=== PATIENT | male | born 1945 | race Caucasian/White ===

== ENCOUNTER 2019-08-22 19:12 | Inpatient (IN) ==
[2019-08-22] MEDS ORDERED: PULMICORT INH ONE (19:29)
[2019-08-22] MEDS ORDERED: DUONEB (A & A) INH ONE (19:29)
[2019-08-22 19:42] LABS: BASO# 0.09 X1000 (0.0-0.2); BASO% 0.8 % (0.0-0.8); EOS# 0.25 X1000 (0.0-0.7); EOS% 2.3 % (0.0-10.0); HEMATOCRIT 44.6 % (42.0-52.0); HEMOGLOBIN 14.3 g/dL (14.0-18.0); IMM GRAN# 0.02 X1000 (0.0-0.04); IMM GRAN% 0.2 % (0.0-0.5); LYMPH# 4.94 X1000 (1.2-3.4); LYMPH% 45.7 % (20.5-51.1); MCH 29.5 PG (27-31); MCHC 32.1 g/dL (33-37); MCV 92.1 FL (81-99); MONO# 0.68 X1000 (0.11-0.59); MONO% 6.3 % (1.7-9.3); MPV 10.7 FL (7.4-10.4); NEUT# 4.82 X1000 (1.4-6.5); NEUT% 44.7 % (42.2-75.2); PLT 328 X1000 (130-400); RBC 4.84 XMIL (4.7-6.1); RDW 13.9 % (11.5-14.5)
[2019-08-22 19:50] LABS: ALLEN TEST YES; BE -4.8 mmoll (-3.0-3.0); BLOOD TYPE ARTERIAL; HCO3-(ACT) 21.2 mmoll (20.0-26.0); O2(CT) 21.1 mL/dL (15.0-23.0); O2HB 96.6 % (95.0-99.0); PCO2(98.6) 44 mmHg (35-45); PO2(98.6) 524 mmHg (60-100); SAMPLE BLOOD; SAO2 96.6 % (95.0-100.0); THB 14.5 g/dL (11.5-17.4)
[2019-08-22 19:51] LABS: MODALITY BI PAP
--- NOTE | 2019-08-22 19:51 | PROVIDER DOCUMENTATION ---
This chart was entered by Patrica Egan Scribe, acting as scribe for Bouchra Carrillo MD. HPI-Respiratory General - General Stated Complaint: RESP DISTRESS Time Seen by Provider: 08/22/19 19:13 Source: EMS Allergies/Adverse Reactions: Patient Allergies Allergy/AdvReac Type Severity Reaction Status Date / Time No Known Allergies Allergy Verified 08/23/19 01:22 Home Medications: Home Medication List Medication Instructions Recorded Confirmed Last Taken Type Amlodipine Besylate 10 mg PO DAILY 08/22/19 08/22/19 08/22/19 History Aspirin EC 81 mg PO DAILY 08/22/19 08/22/19 08/22/19 History Cyanocobalamin (Vitamin B-12) 2,000 mcg PO DAILY 08/22/19 08/22/19 08/22/19 History [Vitamin B-12] Lorazepam [Ativan] 1 mg PO QHS 08/22/19 08/22/19 08/21/19 History Mirtazapine 30 mg PO QHS 08/22/19 08/22/19 08/21/19 History Multivit,Tx with Iron,Minerals 1 tab PO DAILY 08/22/19 08/22/19 08/22/19 History [Complete Multivitamin] Pantoprazole Sodium [Protonix] 40 mg PO DAILY 08/22/19 08/22/19 08/22/19 History Trazodone [Desyrel] 100 mg PO QHS 08/22/19 08/22/19 08/21/19 History - History of Present Illness-Resp Nature of Presenting Problem: PT IS A 77 YOWM PRESENTING W/[employer] EMS W/RESP DISTRESS. EMS STS PT HAS ACCESSORY MUSCLE USE, AND AUDIBLE WHEEZING ENROUTE. ON CPAP W/ALBUTEROL. PT WAS AT HOME WHEN EMS CALLED. HPI LIMITED DUE TO PT CONDITION. Severity in ED: reports: severe Onset/Duration: reports: just prior to arrival Timing: reports: still present Exposure: reports: unknown cause Modifying Factors: improves with: nothing Review of Systems - Adult - REVIEW OF SYSTEMS - ADULT Constitutional: reports: no symptoms reported. denies: fever, fatique, night sweats Eyes: reports: no symptoms reported Ears, Nose, Mouth & Throat: reports: no symptoms reported Cardiovascular: reports: no symptoms reported Respiratory: reports: see HPI, shortness of breath, wheezing. denies: cough, excessive sputum production, hemoptysis Gastrointestinal: reports: no symptoms reported Genitourinary: reports: no symptoms reported Musculoskeletal: reports: no symptoms reported Integumentary: reports: no symptoms reported Neurological: reports: no symptoms reported Psychiatric: reports: no symptoms reported Endocrine: reports: no symptoms reported Hematologic/Lymphatic: reports: no symptoms reported Allergic/Immunologic: reports: no symptoms reported All Other Systems: Reviewed and Negative Past History - Adult - PAST MEDICAL HISTORY-ADULT Review of Records: reports: Old Records Reviewed, Nursing Assessment Review, Medications Reviewed, Social history reviewed & non-contributory. Major Childhood Illnesses: reports: denies history Cardiovascular: reports: denies history Respiratory: reports: denies history Gastrointestinal: reports: denies history Obstetrical/Gynecological: reports: denies history Genitourinary: reports: denies history Musculoskeletal: reports: denies history Neurological: reports: denies history Endocrine/Immune: reports: denies history Other Conditions: reports: denies history - IMMUNIZATION STATUS Childhood Immunizations: See Nurse Assessment Flu Vaccine: See Nurse Assessment - FAMILY HISTORY Family History: reviewed, not pertinent Physical Exam-General - PHYSICAL EXAM-ADULT Initial Vital Signs Reviewed: Yes - CONSTITUTIONAL General Appearance: severe distress, obese, slow to respond, obtunded. negative: anxious, combative - EYES Eyes: PERRL/EOMI - HEAD, EARS, NOSE, MOUTH & THROAT HENMT: normocephalic/atraumatic, moist mucous membranes - NECK Neck: non-tender, full range of motion, supple, normal inspection - RESPIRATORY Respiratory: chest non-tender, no pleuratic chest pain, respiratory distress, decreased breath sounds, accessory muscle use, wheezing (AUDIBLE WHEEZING). negative: lungs clear, normal breath sounds, no respiratory distress, no accessory muscle use, stridor - CARDIOVASCULAR Cardiovascular: normal peripheral pulses, tachycardia. negative: regular rate, rhythm, friction rub, irregularly irregular - GASTROINTESTINAL (ABDOMEN) Abdominal Exam: normal bowel sounds, non tender, soft - MUSCULOSKELETAL Back Exam: normal inspection Extremity: normal range of motion, non-tender, normal inspection, no pedal edema , no calf tenderness, normal capillary refill, pelvis stable. negative: slow capillary refill, swelling, tenderness - SKIN Integumentary: normal color, normal turgor, warm/dry - NEUROLOGIC Neurologic: no motor/sensory deficits, other - PSYCHIATRIC Psych/Mental Status: other (UNABLE TO TEST DUE TO PT CONDITION) Progress - PLAN OF CARE/RESULTS Progress/Plan/Lab Results: Vital Signs - 8 hr 08/22/19 22:17 08/22/19 22:32 08/22/19 22:47 Temperature Pulse Rate 79 89 77 Respiratory Rate 13 15 15 Blood Pressure 137/88 122/82 144/76 O2 Sat by Pulse Oximetry 100 100 99 08/22/19 23:02 08/22/19 23:10 08/22/19 23:17 Temperature 98.0 F Pulse Rate 78 77 Respiratory Rate 14 17 Blood Pressure 133/72 142/82 O2 Sat by Pulse Oximetry 100 98 99 08/22/19 23:32 08/22/19 23:47 08/23/19 00:02 Temperature 97.9 F Pulse Rate 72 70 78 Respiratory Rate 16 15 19 Blood Pressure 123/71 125/77 139/79 O2 Sat by Pulse Oximetry 98 98 97 08/23/19 00:17 08/23/19 00:32 08/23/19 00:47 Temperature Pulse Rate 71 68 71 Respiratory Rate 16 14 17 Blood Pressure 127/71 123/72 121/70 O2 Sat by Pulse Oximetry 98 97 97 08/23/19 01:02 Temperature 98.0 F Pulse Rate 72 Respiratory Rate 15 Blood Pressure 127/70 O2 Sat by Pulse Oximetry 98 08/23/19 00:21 Influenza Screen - Final Nasopharyngeal Laboratory Results - last 24 hr 08/22/19 08/22/19 08/22/19 19:24 19:24 19:24 WBC 10.80 RBC 4.84 Hgb 14.3 Hct 44.6 MCV 92.1 MCH 29.5 MCHC 32.1 L RDW Std Deviation 13.9 Plt Count 328 MPV 10.7 H Immature Gran % (Auto) 0.2 Neut % (Auto) 44.7 Lymph % (Auto) 45.7 Johnson % (Auto) 6.3 Eos % (Auto) 2.3 Baso % (Auto) 0.8 Immature Gran # (Auto) 0.02 Neut # (Auto) 4.82 Lymph # (Auto) 4.94 H Johnson # (Auto) 0.68 H Eos # (Auto) 0.25 Baso # (Auto) 0.09 PT INR PTT (Actin FS) Specimen Type Sample Site pH pCO2 pO2 HCO3 Base Excess Oxyhemoglobin ABG O2 Sat (Calculated) ABG O2 Saturation ABG Carboxyhemoglobin ABG Methemoglobin Ryan Test A-a O2 Difference Total Hemoglobin Lactate Liter Flow Blood Gas Modality Vent Mode FiO2 % Inspiratory BiPAP Expiratory BiPAP Sodium 139 Potassium 4.1 Chloride 102 Carbon Dioxide 22 L Anion Gap 15 BUN 12 Creatinine 1.2 BUN/Creatinine Ratio 10 Glucose 164 H POC Glucose Calculated Osmolality 281 Calcium 9.4 Total Bilirubin 0.31 AST 26 ALT 19 Alkaline Phosphatase 78 Troponin T High Sens Vdp-P-Gaxvdgbxznr Pept 82 Total Protein 7.7 Albumin 4.4 Globulin 3.3 Albumin/Globulin Ratio 1.3 08/22/19 08/22/19 08/22/19 19:24 19:24 19:37 WBC RBC Hgb Hct MCV MCH MCHC RDW Std Deviation Plt Count MPV Immature Gran % (Auto) Neut % (Auto) Lymph % (Auto) Johnson % (Auto) Eos % (Auto) Baso % (Auto) Immature Gran # (Auto) Neut # (Auto) Lymph # (Auto) Johnson # (Auto) Eos # (Auto) Baso # (Auto) PT 12.2 INR 0.90 PTT (Actin FS) 29.5 Specimen Type Sample Site pH pCO2 pO2 HCO3 Base Excess Oxyhemoglobin ABG O2 Sat (Calculated) ABG O2 Saturation ABG Carboxyhemoglobin ABG Methemoglobin Ryan Test A-a O2 Difference Total Hemoglobin Lactate Liter Flow Blood Gas Modality Vent Mode FiO2 % Inspiratory BiPAP Expiratory BiPAP Sodium Potassium Chloride Carbon Dioxide Anion Gap BUN Creatinine BUN/Creatinine Ratio Glucose POC Glucose 145 H Calculated Osmolality Calcium Total Bilirubin AST ALT Alkaline Phosphatase Troponin T High Sens 14 Bxw-V-Mysnusbaymn Pept Total Protein Albumin Globulin Albumin/Globulin Ratio 08/22/19 08/22/19 19:45 23:55 WBC RBC Hgb Hct MCV MCH MCHC RDW Std Deviation Plt Count MPV Immature Gran % (Auto) Neut % (Auto) Lymph % (Auto) Johnson % (Auto) Eos % (Auto) Baso % (Auto) Immature Gran # (Auto) Neut # (Auto) Lymph # (Auto) Johnson # (Auto) Eos # (Auto) Baso # (Auto) PT INR PTT (Actin FS) Specimen Type ARTERIAL ARTERIAL Sample Site R RADIAL R RADIAL pH 7.30 L 7.41 pCO2 44 36 pO2 524 H 85 HCO3 21.2 23.8 Base Excess -4.8 L -1.4 Oxyhemoglobin 96.6 95.2 ABG O2 Sat (Calculated) 21.1 18.1 ABG O2 Saturation 96.6 95.3 ABG Carboxyhemoglobin 0.00 L 0.00 L ABG Methemoglobin 0.0 0.1 Ryan Test YES YES A-a O2 Difference 134.0 98.0 Total Hemoglobin 14.5 13.5 Lactate 0.90 1.30 Liter Flow 3.0 Blood Gas Modality BI PAP CANNULA Vent Mode BIPAP FiO2 % 100.0 32.0 Inspiratory BiPAP 16.0 Expiratory BiPAP 6.0 Sodium Potassium Chloride Carbon Dioxide Anion Gap BUN Creatinine BUN/Creatinine Ratio Glucose POC Glucose Calculated Osmolality Calcium Total Bilirubin AST ALT Alkaline Phosphatase Troponin T High Sens Okf-B-Uzimwztywvh Pept Total Protein Albumin Globulin Albumin/Globulin Ratio Orders Category Date Time Status Admit - [facility] Routine AdmDCTranf 08/23/19 01:38 Active Activity - Bedrest with BSC ORDERED Care 08/23/19 01:38 Active Apply Mechanical Device [QM] ORDERED Care 08/23/19 01:38 Active Blood Glucose Finger Stick [FSBS/Accucheck Result] NOW Care 08/22/19 19:28 Completed Intake and Output-Strict Q 8-HR ASSESS Care 08/23/19 01:38 Active Nursing- Assist w/ IS as order ORDERED Care 08/23/19 01:38 Active Nursing- Obtain EKG ONCE Care 08/22/19 19:28 Completed Saline Loc DIRECTED Care 08/23/19 01:38 Completed Turn, Cough and Deep Breathe Q4HR.AWAKE Care 08/23/19 01:38 Active Z-Document. for Tele Applied ORDERED Care 08/23/19 01:38 Completed Heart Healthy Diet Diet 08/23/19 01:39 Active CHEST-PORTABLE [RAD] Routine Exams 08/23/19 06:00 Ordered CHEST-PORTABLE [RAD] Stat Exams 08/22/19 19:45 Completed ABG [RESP] Routine Lab 08/22/19 19:45 Completed ABG [RESP] Routine Lab 08/22/19 23:55 Completed ABG [RESP] Routine Lab 08/23/19 04:50 Completed BLOOD CULTURE [BLDCUL] Routine Lab 08/23/19 05:25 Received CBC WITH DIFF [HEME] Routine Lab 08/23/19 05:25 Results CBC WITH ELECTRONIC DIFF [HEME] Stat Lab 08/22/19 19:24 Completed COMPREHENSIVE METABOLIC PANEL [CHEM] Routine Lab 08/23/19 05:25 Received COMPREHENSIVE METABOLIC PANEL [CHEM] Stat Lab 08/22/19 19:24 Completed Flu Swab [INFLUENZA SCREEN A/B] Stat Lab 08/23/19 00:21 Completed PRO B-NATRIURETIC PEPTIDE Stat Lab 08/22/19 19:24 Completed PROTIME WITH INR [COAG] Stat Lab 08/22/19 19:24 Completed PTT [COAG] Stat Lab 08/22/19 19:24 Completed SPUTUM CULTURE WITH GRAM STAIN [RM] Routine Lab 08/23/19 01:38 Uncollected TROPONIN T HIGH SENSITIVITY Stat Lab 08/22/19 19:24 Completed URINE CULTURE [RM] Routine Lab 08/23/19 01:38 Uncollected Acetaminophen [Tylenol] Med 08/23/19 01:38 Active 650 mg PO Q6H PRN PRN Albuterol 2.5MG/Ipratrop 0.5MG [Duoneb (A & A)] Med 08/23/19 01:38 Active 3 ml INH Q2H PRN PRN Albuterol 2.5MG/Ipratrop 0.5MG [Duoneb (A & A)] Med 08/23/19 01:38 Active 3 ml INH RTQ4H Albuterol 2.5MG/Ipratrop 0.5MG [Duoneb (A & A)] Med 08/22/19 19:29 D iscontinued 9 ml INH NOW ONE Amlodipine [Norvasc] Med 08/23/19 09:00 Active 10 mg PO DAILY Aspirin EC Med 08/23/19 09:00 Active 81 mg PO DAILY Azithromycin 500 mg/Ns [Zithromax 500 mg/Ns] Med 08/23/19 01:38 Active 500 mg in 250 ml IV Q24H Budesonide [Pulmicort] Med 08/22/19 19:29 Discontinued 1 mg INH NOW ONE CefTRIAXONE [Rocephin] 1 gm Med 08/23/19 01:38 Active 0.9% Sodium Chloride Inj [Ns] 50 ml IV Q24H Lorazepam [Ativan] Med 08/23/19 21:00 Active 1 mg PO QHS Methylprednisolone Sod Succ [Solu-Medrol] Med 08/22/19 21:15 Discontinued 125 mg IV NOW ONE Methylprednisolone Sod Succ [Solu-Medrol] Med 08/23/19 05:00 Active 80 mg IV Q8H Mirtazapine [Remeron] Med 08/23/19 21:00 Active 30 mg PO QHS Ondansetron [Zofran] Med 08/23/19 01:38 Active 4 mg IV Q4H PRN PRN Pantoprazole [Protonix] Med 08/23/19 07:00 Active 40 mg PO DAILY@0700 Trazodone [Desyrel] Med 08/23/19 21:00 Active 100 mg PO QHS Aerosol Treatments Routine Ot 08/22/19 19:33 Completed Aerosol Treatments Stat Oth 08/22/19 19:33 Completed BIPAP Stat Ot 08/22/19 19:34 Active Incentive Spirometer Q4HR.AWAKE Ot 08/23/19 05:00 Completed Incentive Spirometer Q4HR.AWAKE Ot 08/23/19 09:00 Completed Incentive Spirometer Q4HR.AWAKE Ot 08/23/19 13:00 Completed Incentive Spirometer Q4HR.AWAKE Ot 08/23/19 17:00 Completed Incentive Spirometer Q4HR.AWAKE Ot 08/23/19 21:00 Completed Incentive Spirometer Q4HR.AWAKE Ot 08/24/19 01:00 Completed Oxygen Device Routine Ot 08/23/19 01:38 Active Peak Flow BID Oth 08/23/19 09:00 Completed Peak Flow BID Ot 08/23/19 21:00 Completed Telemetry [OM.EQ] Routine Oth 08/23/19 01:38 Active EKG [EKG] Stat Ther 08/22/19 19:28 Ordered Transfer/Admit Order [TRANSFER] Routine Transfer 08/22/19 22:41 Completed Patient initiated on bipap upon arrival due to acute restp distress. Patient tolerated it well and was acutally able to be weaned but was still requiring O2. Spoke to Dr Peoples, transition social worker for hospitalist who accepted patient for admission. Further orders Result Diagrams: 08/22/19 19:24 08/22/19 19:24 - EKG 1 Time of EKG reading by physician:: 19:17 EKG Read and Signed by:: Bouchra M. Giyanani EKG Interpretation (*Must complete 3 of following elements*): Abnormal Rate: 115 Rhythm: Sinus tachycardia QRS: normal MD Interval: normal ST Wave: non-specific ST changes - XRAY 1 XRAY Study: Chest (EXAM: CHEST-PORTABLE 08/22/2019 HISTORY: COPD TECHNIQUE: AP portable upright erect at 1954 COMMENT: The costophrenic angles are not included on the image. There is no evidence of acute cardiac or pulmonary disease. There are no previous studies. IMPRESSION: No evidence of acute disease. Electronically signed by Wsiam Ray 08/22/2019 7:59 PM) - CONSULTS/PCP/HOSPITALIST Notification #1 *Consult/PCP/Hospitalist*: Dr Peoples Time Discussed: 21:30 Consult Disposition: Admit Departure - Departure Date of Disposition Decision: 08/22/19 Time of Disposition Decision: 21:30 DIAGNOSIS: Chronic obstructive pulmonary disease with (acute) exacerbation, Respiratory distress, Hypoxia Disposition: ADMITTED INPATIENT 09 Certified Medical Emergency: Emergent Condition: Serious - Critical Care Note This patient required my direct & personal management of CC.: Yes Total Time (mins): 35 Critical Care Statement: This patient required my direct personal management to treat or rule out processes, the absence of which, could potentiallly result in sudden, clinically significant life or limb threatening deterioration. Attestation - Physician/ SERENITY Attestation Patient care was provided by Advanced Practice Provider:: No The physician spent face to face time with patient:: Yes Advanced Practice Provider documentation review:: Supervising physician onsite and consulted in the evaluation and care of this patient. The physician did have a face to face encounter with the patient. This chart was documented by the indicated scribe, (Patrica Egan Scribe) and accurately reflects the services I performed and decisions made by me, Bouchra Carrillo MD, as attested by the provider's signature.
[2019-08-22 19:53] LABS: INR 0.9; PROTIME 12.2 Seconds (11.0-16.0)
[2019-08-22 19:54] LABS: PTT 29.5 Seconds (22.3-41.8)
[2019-08-22 20:02] LABS: AGAP 15; ALB/GLOB RATIO 1.3; ALBUMIN 4.4 g/dL (3.5-5.0); ALKALINE PHOSPHATASE 78 U/L (32-122); BUN 12 mg/dL (8-22); CALCIUM 9.4 mg/dL (8.8-10.2); CHLORIDE 102 mmol/L (98-107); COSMO 281; CREATININE 1.2 mg/dL (0.7-1.2); GLUCOSE 164 mg/dL (70-104); GOT 26 U/L (10-34); GPT 19 U/L (10-44); POTASSIUM 4.1 mmol/L (3.5-5.1); SODIUM 139 mmol/L (136-145); TCO2 22 mmol/L (25-35); TOTAL BILIRUBIN 0.31 mg/dL (0.20-1.00); TOTAL PROTEIN 7.7 g/dL (6.3-8.3)
--- NOTE | 2019-08-22 20:03 | Diag Imaging Result Doc PS360 ---
EXAM: CHEST-PORTABLE 08/22/2019 HISTORY: COPD TECHNIQUE: AP portable upright erect at 1954 COMMENT: The costophrenic angles are not included on the image. There is no evidence of acute cardiac or pulmonary disease. There are no previous studies. IMPRESSION: No evidence of acute disease. Electronically signed by Wisam Ray 08/22/2019 7:59 PM
[2019-08-22] MEDS ORDERED: SOLU-MEDROL IV ONE (21:15)
[2019-08-23 00:01] LABS: ALLEN TEST YES; BE -1.4 mmoll (-3.0-3.0); BLOOD TYPE ARTERIAL; HCO3-(ACT) 23.8 mmoll (20.0-26.0); METHB 0.1 % (0.0-1.5); O2(CT) 18.1 mL/dL (15.0-23.0); O2HB 95.2 % (95.0-99.0); PCO2(98.6) 36 mmHg (35-45); PO2(98.6) 85 mmHg (60-100); SAMPLE BLOOD; SAO2 95.3 % (95.0-100.0); THB 13.5 g/dL (11.5-17.4); pH(98.6) 7.41 (7.35-7.45)
[2019-08-23 00:03] LABS: MODALITY CANNULA
[2019-08-23] MEDS ORDERED: ROCEPHIN 1 GM in NS 50 ML IV SCH (01:38)
[2019-08-23] MEDS ORDERED: ZOFRAN IV PRN (01:38)
[2019-08-23] MEDS ORDERED: ZITHROMAX 500 MG/NS 500 MG/250 ML IVPB IV SCH (01:38)
[2019-08-23] MEDS ORDERED: DUONEB (A & A) INH PRN (01:38)
[2019-08-23] MEDS: DUONEB (A & A) INH SCH ×7 (02:07→23:40)
[2019-08-23 05:00] LABS: ALLEN TEST YES; BE -2.4 mmoll (-3.0-3.0); BLOOD TYPE ARTERIAL; O2HB 95.3 % (95.0-99.0); PCO2(98.6) 33 mmHg (35-45); PO2(98.6) 86 mmHg (60-100); SAMPLE BLOOD; SAO2 95.3 % (95.0-100.0); THB 12.6 g/dL (11.5-17.4); pH(98.6) 7.42 (7.35-7.45)
[2019-08-23 05:03] LABS: MODALITY CANNULA
[2019-08-23] MEDS: PROTONIX PO SCH ×2 (05:55→06:00)
[2019-08-23] MEDS: SOLU-MEDROL IV SCH ×3 (05:55→22:16)
--- NOTE | 2019-08-23 06:03 | HISTORY AND PHYSICAL ---
PRIMARY CARE PROVIDER: Dr. Leonard Davis MD CHIEF COMPLAINT: Acute onset shortness of breath. HISTORY OF PRESENT ILLNESS: Mr. 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 He reports he has had some nasal congestion ongoing for a couple of weeks and had an episode of acute onset of SOB. He has not had any recent fever, chills, or been exposed to any illnesses. His daughter called EMS because the patient was in respiratory distress. He had audible wheezing en route with accessory muscle use. He was placed on CPAP, and given albuterol treatments. Patient was hesitant to be admitted but agreed to be on BIPAP overnight. PMH: as per HPI PSH: Hernia repair FAMILY HISTORY: Noncontributory SOCIAL HISTORY: second hand smoke exposure, denies tobacco, alcohol or illicit drug use. ROS: Complete and negative except for those mentioned in HPI: Denies any vomiting, diarrhea, or any issues with urination. No bright red or dark tarry stools. ALLERGIES: NKDA HOME MEDICATIONS: Being Compiled PHYSICAL EXAMINATION: VITAL SIGNS: Temperature 97.7 degrees, heart rate 102, respirations 20, blood pressure 112/79, and O2 is 100% on BiPAP. GENERAL: Mr. Leong is a pleasant 74-year-old male who is sitting up in the stretcher. He is really not wanting to be admitted to the hospital, and was wanting to go home. He is in no acute distress on the BiPAP. HEENT: Atraumatic, normocephalic. PERRL. He is hard of hearing. NECK: Supple. Trachea midline. CARDIOVASCULAR: S1, S2 appreciated. RESPIRATORY: Lung sounds decreased airway entry throughout all lung velarde. I did not appreciate any rales, rhonchi, or wheezes. GASTROINTESTINAL: Soft, nontender, and nondistended. Positive bowel sounds times 4 quadrants. EXTREMITIES: Lower extremities are negative for edema. DIAGNOSTIC DATA: Chest x-ray with no acute disease currently pending his EKG. LABORATORY DATA: White count 10, hemoglobin and hematocrit 14 and 44, and platelet count of 328,000. ABG, pH was 7.30, pCO2 44, PO2 524, base excess was -0.48. O2 saturation was 96% on BiPAP. Chemistries: Sodium 139, potassium 4.1, carbon dioxide was 22, BUN 12, creatinine 1.2, and blood glucose is 164. ASSESSMENT AND PLAN: 1. Acute hypoxemic respiratory failure with metabolic acidosis. He has been placed on the BiPAP. Oxygenation has improved with breathing treatments. We will place him on PVC, and recheck a stat ABG. 2. COPD exacerbation. We will continue with supplemental O2, bronchodilators, aggressive pulmonary toilet, IV steroids, and prophylactically initiate him on Rocephin and azithromycin. 3. Hypertension. We will continue his home Norvasc. 4. Hyperlipidemia. 5. Hard of hearing. 6. CVA years ago with some residual left-sided lower extremity numbness. 7. Further recommendations to follow physician evaluation, laboratory and diagnostic data. Dictated by CASPER Lai for Conor Peoples MD cc: MD Leonard Argueta MD Independent exam done by fl at bedside with MANAGER REVENUE. Above plan was discussed with MANAGER REVENUE, pt and family at bedside. Pt's clinical picture has improved remarkable on BIPAP and hopefully in 1-2 days can be transitioned to [place]. MTDD
[2019-08-23 06:36] LABS: HEMATOCRIT 40.1 % (42.0-52.0); HEMOGLOBIN 13.1 g/dL (14.0-18.0); LYMPH# 0.49 X1000 (1.2-3.4); LYMPH% 5.9 % (20.5-51.1); MCHC 32.7 g/dL (33-37); MCV 91.8 FL (81-99); MONO# 0.03 X1000 (0.11-0.59); MONO% 0.4 % (1.7-9.3); MPV 11.2 FL (7.4-10.4); NEUT# 7.75 X1000 (1.4-6.5); NEUT% 93.7 % (42.2-75.2); PLT 277 X1000 (130-400); RBC 4.37 XMIL (4.7-6.1); RDW 13.7 % (11.5-14.5); WBC 8.27 X1000 (4.8-10.8)
[2019-08-23 06:56] LABS: AGAP 8; ALB/GLOB RATIO 1.3; ALKALINE PHOSPHATASE 68 U/L (32-122); BUN 13 mg/dL (8-22); CALCIUM 9.6 mg/dL (8.8-10.2); CHLORIDE 101 mmol/L (98-107); COSMO 273; CREATININE 1.1 mg/dL (0.7-1.2); ESTIMATED GFR > 60; GLUCOSE 179 mg/dL (70-104); GOT 21 U/L (10-34); GPT 15 U/L (10-44); POTASSIUM 4.4 mmol/L (3.5-5.1); SODIUM 134 mmol/L (136-145); TCO2 25 mmol/L (25-35); TOTAL BILIRUBIN 0.34 mg/dL (0.20-1.00)
--- NOTE | 2019-08-23 07:09 | Diag Imaging Result Doc PS360 ---
EXAM: CHEST-PORTABLE 08/23/2019 HISTORY: short of breath TECHNIQUE: AP portable at 0559 COMMENT: There is no evidence of acute cardiac or pulmonary disease. Compared to 08/22/2019 there has been no significant change. IMPRESSION: Stable chest. Electronically signed by Wisam Ray 08/23/2019 7:06 AM
[2019-08-23] MEDS: NORVASC PO SCH (08:37)
[2019-08-23] MEDS: ASPIRIN EC PO SCH (08:37)
--- NOTE | 2019-08-23 09:36 | PROGRESS NOTE ---
DATE: 08/23/2019 Mr. Leong is a 74-year-old white man who presented to the emergency room last p.m. with COPD exacerbation. He was admitted for further evaluation and treatment. Initially, he was on BiPAP, now 3 L nasal oxygen. Blood gases this morning reveal pH 7.42, pCO2 33, PO2 86. Other laboratory: Hemoglobin 13.1, hematocrit 40.1, white blood count 8300 with normal differential. Sodium 134, potassium 4.4, BUN 13, creatinine 1.1, glucose 179. Liver functions normal. Protein normal at 7.0. VITAL SIGNS: Temperature 97.9 degrees, heart rate 92, respirations 16, blood pressure 139/77, O2 saturation on 3 L nasal oxygen 97%. The patient is feeling better and breathing easier. Lungs are clear to auscultation. He is on steroids and Rocephin. Steroids can probably be changed to p.o. tomorrow and if he does not need oxygen, he may be able to go home tomorrow afternoon. cc: Leonard Davis MD
[2019-08-23] MEDS: TYLENOL PO PRN ×3 (10:30→22:16)
[2019-08-23] MEDS ORDERED: DESYREL PO SCH (21:00)
[2019-08-23] MEDS ORDERED: REMERON PO SCH (21:00)
[2019-08-23] MEDS ORDERED: ATIVAN PO SCH (21:00)
[2019-08-24] MEDS: DUONEB (A & A) INH SCH ×4 (04:06→15:33)
[2019-08-24] MEDS: PROTONIX PO SCH (06:10)
[2019-08-24] MEDS: SOLU-MEDROL IV SCH (06:10)
[2019-08-24] MEDS: ASPIRIN EC PO SCH (08:46)
[2019-08-24] MEDS: NORVASC PO SCH (08:46)
[2019-08-24] MEDS ORDERED: ZITHROMAX PO SCH (09:00)
--- NOTE | 2019-08-24 09:28 | PROGRESS NOTE ---
DATE: 08/24/2019 OBJECTIVE: Vital signs: Temperature 97.5 degrees, heart rate 79, respirations 19, blood pressure 104/61, O2 saturation on room air 95%. General: The patient rested well last night. He is feeling better this morning. Lungs: Lungs are clear to auscultation. Nutrition: He is eating fairly well. PLAN: Change IV medicines to p.o. and change to saline lock. He will ambulate in the room and duran today, and discharge home will be considered this afternoon. cc: Leonard Davis MD
[2019-08-24 15:24] VITALS: BP 114/61
[2019-08-24] MEDS ORDERED: PREDNISONE PO SCH (21:00)
--- NOTE | 2019-08-25 14:51 | DISCHARGE SUMMARY ---
ADMISSION DATE: 08/23/2019 DISCHARGE DATE: 08/24/2019 FINAL DIAGNOSES: 1. COPD exacerbation. 2. Chronic insomnia. 3. Upper respiratory infection. DISCHARGE MEDICATIONS: Albuterol via nebulizer q.i.d., prednisone 20 mg b.i.d., Zithromax (3) 500 mg daily, and usual home medications. HISTORY: This is the first recent [facility] admission for this 74-year-old white man who presented to the emergency room with shortness of breath. Chest x-ray showed no edema or infiltrate. Blood gases on presentation revealed pH 7.30, pCO2 44, PO2 524, HC03 21.2 on BiPAP. He was admitted to [facility] with nasal oxygen. On 3 L, his pH was 7.41, pCO2 36, PO2 85. Other laboratory: Hemoglobin 13.1, hematocrit 40.1, white blood count 8300 with normal differential. Sodium 134, potassium 4.4, BUN 13, creatinine 1.1, blood sugar 179. Liver functions normal. Total protein 7.0, albumin 4.0. HOSPITAL COURSE: He was treated with intravenous antibiotics, Zithromax and Rocephin. He remained afebrile. He was able to maintain O2 saturation in the mid 90s off oxygen today. He is feeling well this evening and is discharged home on the above medications to be seen back in the office in one week for followup. cc: Leonard Davis MD
== END 2019-08-24 17:40 | disposition home or self-care (01) | DRG 192 ==
LOC: ED 19:12 → SUATTDRO 08-23 01:19 → 2N 08-23 01:19 → MERGE 08-23 01:19
PROVIDERS: ADMIT Family Medicine; ATTEND Family Medicine